=== PATIENT | male | born 1990 | race African-American/Black ===

== ENCOUNTER 2017-12-11 18:06 | Emergency (ER) | payer SELFPAY ==
[2017-12-11 18:35] VITALS: BP 124/70; PULSE 82; TEMP 98.4; BMI 33.2
--- NOTE | 2017-12-11 19:01 | PDOC ---
History of Present Illness - General Chief Complaint: Urinary Problem Stated Complaint: ABDOMINAL PAIN Time Seen by Provider: 12/11/17 18:52 History Source: Patient Exam Limitations: No Limitations - History of Present Illness Travel History: No Initial Comments: 12/11/17 19:14 Patient came for evaluation of dysuria. States woke up this morning and has had urgency and pain with his void States his had a urinary tract infection before but has also had an STD, treated for gonorrhea approximately 10 years ago with similar symptoms.s has had unprotected sex but denies penile discharge, swelling or tenderness to testicles or penis, and no fever/abdominal pain Timing/Duration: reports: getting worse, changing over time Quality: reports: mild, moderate Abdominal Pain Onset Location: reports: suprapubic Past History - Travel Traveled outside of the country in the last 30 days: No Close contact w/someone who was outside of country & ill: No - Past Medical History Allergies/Adverse Reactions: Allergies Allergy/AdvReac Type Severity Reaction Status Date / Time dexamethasone [From Decadron] AdvReac Severe Verified 03/22/15 03:04 dexamethasone sod phosphate AdvReac Severe Verified 03/22/15 03:04 [From Decadron] Home Medications: Ambulatory Orders NK [No Known Home Medication] 12/11/17 Asthma: Yes COPD: No - Immunization History Immunization Up to Date: Yes - Suicide/Smoking/Psychosocial Hx Smoking History: Never smoked Have you smoked in the past 12 months: No Hx Alcohol Use: No Drug/Substance Use Hx: No Substance Use Type: None Review of Systems - Review of Systems Able to Perform ROS?: Yes Is the patient limited French proficient: Yes Constitutional: Yes: Symptoms Reported, See HPI, Malaise HEENTM: No: Symptoms Reported Respiratory: No: Symptoms reported : Yes: Symptoms Reported, See HPI, Burning, Dysuria. No: Discharge, Frequency , Flank Pain, Pain Integumentary: No: Symptoms Reported All Other Systems: Reviewed and Negative *Physical Exam - Vital Signs Last Vital Signs Temp Pulse Resp BP Pulse Ox 98.4 F 82 16 124/70 100 12/11/17 18:33 12/11/17 18:33 12/11/17 18:33 12/11/17 18:33 12/11/17 18:33 - Physical Exam General Appearance: Yes: Nourished, Appropriately Dressed, Apparent Distress, Mild Distress HEENT: positive: MJ, Normal ENT Inspection, TMs Normal, Pharynx Normal Neck: positive: Supple. negative: Tender Respiratory/Chest: positive: Lungs Clear Gastrointestinal/Abdominal: positive: Soft. negative: Tender, Guarding, Rebound Male Genitalia: positive: normal genitalia. 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 RPR drawn and Chlamydia/gonorrhea pending. Patient understands testing results will be available in 3-5 days and given follow-up phone number *DC/Admit/Observation/Transfer Diagnosis at time of Disposition: Dysuria - Discharge Dispostion Disposition: HOME Condition at time of disposition: Stable Decision to Admit order: No - Referrals Referrals: Gato Victoria MD [Staff Physician] - - Patient Instructions Printed Discharge Instructions: DI for Dysuria -- Adult Additional Instructions: You been treated today with azithromycin 1 g by mouth for treatment of presumed chlamydia You have been treated with Rocephin 250 mg injection for treatment of presumned gonorrhea The syphilis test, gonorrhea and chlamydia testing will not be completed for the next few days. You may call [phone] and leave message for return phone call with lab results. Be sure to be clear with your name, birthdate, and phone number Always use condoms with the partners Followup with r PMD in one week for reevaluation and retesting. - Post Discharge Activity Forms/Work/School Notes: Back to Work
[2017-12-11] MEDS ORDERED: AZITHROMYCIN 1 GM PACKET PO ONE (19:02)
[2017-12-11] MEDS ORDERED: AZITHROMYCIN 500 MG TABLET ONE (19:31)
[2017-12-11 19:54] LABS: URINE APPEARANCE CLEAR; URINE BILIRUBIN NEGATIVE (<2.0 mg/dL); URINE COLOR YELLOW; URINE GLUCOSE (UA) NEGATIVE (NEGATIVE); URINE KETONE NEGATIVE (NEGATIVE); URINE LEUK ESTERASE NEGATIVE (NEGATIVE); URINE NITRITE NEGATIVE (NEGATIVE); URINE PROTEIN NEGATIVE (NEGATIVE); URINE UROBILINOGEN NEGATIVE mg/dL (0.2-1.0)
== END 2017-12-11 19:56 | disposition home or self-care (01) ==
LOC: JER 18:06 → JERFT 18:06
DX: R30.0 Dysuria (principal)
CPT/HCPCS: 36415; 81003; 86593; 87491; 87591; 99281-25